=== PATIENT | female | born 1955 | race Hispanic/Latino ===

== ENCOUNTER 2017-12-16 13:51 | Emergency (ER) | payer OTHER ==
[~2017-12-16] VITALS: Ht 160 cm; Wt 83.9 kg
[2017-12-16] MEDS ORDERED: HYDROCODONE/APAP 7.5MG-325MG 1 EA TAB PO PRN (14:00)
--- NOTE | 2017-12-16 14:33 | Diagnostic Imaging Report ---
PROCEDURE:X-RAY RIGHT ANKLE, COMPLETE INDICATION: Pain COMPARISON:None. FINDINGS: No evidence of acute displaced fracture or dislocation. Very subtle lucent line at the tip of the fibula. Mild soft tissue swelling about the ankle. CONCLUSION: No acute displaced fracture or dislocation of the right ankle. Very subtle lucent line at the tip of the fibula, could represent nondisplaced fracture in the appropriate clinical setting. Dictated by: Raleigh Presley M.D. on 12/16/2017 at 14:33 Electronically approved by: Raleigh Presley M.D. on 12/16/2017 at 14:33
--- NOTE | 2017-12-16 14:37 | Diagnostic Imaging Report ---
PROCEDURE:X-RAY RIGHT FOOT, COMPLETE COMPARISON:None. INDICATIONS:RIGHT FOOT PAIN FINDINGS: There are no fractures, dislocations, lytic or blastic lesions. The bones are well-mineralized. The soft-tissues are unremarkable. Calcified periosteal thickening of the lateral fourth metatarsal bone. CONCLUSION: No acute fracture or dislocation of the right foot. Calcified periosteal thickening of the lateral fourth metatarsal bone, could be related to an old fracture or infection. Dictated by: Raleigh Presley M.D. on 12/16/2017 at 14:37 Electronically approved by: Raleigh Presley M.D. on 12/16/2017 at 14:37
[2017-12-16 14:57] VITALS: BP 149/81
== END 2017-12-16 15:14 | disposition home or self-care (01) ==
LOC: ER 13:51
DX: S93.401A Sprain of unspecified ligament of right ankle, initial encounter (principal); W01.0XXA Fall on same level from slipping, tripping and stumbling without subsequent striking against object, initial encounter; Y92.007 Garden or yard of unspecified non-institutional (private) residence as the place of occurrence of the external cause
CPT/HCPCS: 99283

== ENCOUNTER 2021-10-13 12:48 | Emergency (ER) | payer MEDICARE, OTHER ==
[~2021-10-13] VITALS: Ht 160 cm; Wt 83.9 kg
[2021-10-13] MEDS ORDERED: PROAIR HFA INH8.5 GM PO (13:17)
[2021-10-13] MEDS ORDERED: TESSALON PERLE100 MG PO (13:17)
== END 2021-10-13 13:43 | disposition home or self-care (01) ==
LOC: ER 13:00
DX: U07.1 COVID-19 (principal); R05.9 Cough, unspecified; I10 Essential (primary) hypertension
CPT/HCPCS: 99283

== ENCOUNTER → 2023-03-29 | Outpatient (CLI) | payer MEDICARE ==
[~2023-03-29] MED LIST: PROAIR HFA INH8.5 GM PO; REGADENOSON 0.4 MG/5 ML SYR IV ONE; TESSALON PERLE100 MG PO
== END ==
LOC: NM 09:18
PROVIDERS: ATTEND Internal Medicine Cardiovascular Disease
DX: I25.9 Chronic ischemic heart disease, unspecified (principal)
CPT/HCPCS: 78452; 93017; A9502; J2785